=== PATIENT | male | born 1960 | race Asian ===

== ENCOUNTER 2019-09-05 11:54 | Inpatient (IN) | payer MEDICARE ==
[~2019-09-05] VITALS: Ht 157.5 cm; Wt 51.1 kg
[2019-09-05 12:07] VITALS: BP 154/83
[2019-09-05] MEDS ORDERED: ZOLPIDEM TARTRATE 10 MG TABLET PO PRN (12:15)
[2019-09-05] MEDS ORDERED: DIVA125T32 PO (12:15)
[2019-09-05] MEDS ORDERED: DiphenhydrAMINE HCL 50 MG/ML VIAL IM ONE (12:15)
[2019-09-05] MEDS ORDERED: LITH300C3 PO (12:15)
[2019-09-05] MEDS ORDERED: LORazepam 2 MG/ML VIAL IM ONE (12:15)
[2019-09-05] MEDS ORDERED: HALOPERIDOL LACTATE 5 MG/ML VIAL IM ONE (12:15)
[2019-09-05] MEDS ORDERED: HALOPERIDOL LACTATE 5 MG/ML VIAL ONE (12:38)
[2019-09-05] MEDS ORDERED: LORazepam 2 MG/ML VIAL ONE (12:38)
[2019-09-05] MEDS ORDERED: DiphenhydrAMINE HCL 50 MG/ML VIAL ONE (12:39)
[2019-09-05 12:45] VITALS: BP 163/92
[2019-09-05] MEDS ORDERED: PNEUMOCOCCAL VACCINE POLYVALENT 0.5 ML VIAL [PPSV23] IM ONE (13:15)
[2019-09-05] MEDS ORDERED: INFLUENZA VIRUS VACCINE QVS 2019-20 (3YR+)/PF 60 MCG/0.5 ML SYRINGE IM ONE (13:15)
[2019-09-05 14:26] LABS: GLUCOMETER DEV NAME(LOC) BV3N.; GLUCOSE,POINT OF CARE 106 MG/DL (70-110)
[2019-09-05] MEDS ORDERED: DOCUSATE SODIUM 100 MG CAPSULE PO PRN (15:00)
[2019-09-05] MEDS ORDERED: ALBUTEROL SULFATE HFA 90 MCG/PUFF 8 GM INHALER IH PRN (15:00)
[2019-09-05] MEDS ORDERED: CloNIDine HCL 0.1 MG TABLET PO PRN (15:00)
[2019-09-05] MEDS ORDERED: MAGNESIUM HYDROXIDE SUSPENSION 30 ML UDCUP PO PRN (15:00)
[2019-09-05] MEDS ORDERED: IBUPROFEN 400 MG TABLET PO PRN (15:00)
[2019-09-05] MEDS ORDERED: NICOTINE 14 MG/24 HOUR PATCH TD PRN (15:00)
[2019-09-05] MEDS ORDERED: ONDANSETRON HCL 4 MG TABLET PO PRN (15:00)
[2019-09-05] MEDS ORDERED: GuaiFENesin/D-METHORPHAN [SUGAR-FREE] 200-20MG/10 ML SYRUP UDCUP PO PRN (15:00)
[2019-09-05] MEDS ORDERED: LOPERAMIDE HCL 2 MG CAPSULE PO PRN (15:00)
[2019-09-05] MEDS ORDERED: MAG HYDROX/AL HYDROX/SIMETH ES 30 ML SUSPENSION UDCUP PO PRN (15:00)
[2019-09-05] MEDS ORDERED: ACETAMINOPHEN 325 MG TABLET PO PRN (15:00)
[2019-09-05] MEDS ORDERED: PETROLATUM,WHITE 28 GM JELLY TP PRN (15:00)
[2019-09-05 16:00] VITALS: BP 106/64
[2019-09-05] MEDS: AmLODIPine BESYLATE 5 MG TABLET PO SCH (16:52)
[2019-09-05] MEDS: HALOPERIDOL 5 MG TABLET PO PRN (16:52)
[2019-09-06 06:53] VITALS: BP 116/75
[2019-09-06 08:09] VITALS: BP 100/60
[2019-09-06] MEDS: AmLODIPine BESYLATE 5 MG TABLET PO SCH (09:00)
[2019-09-06 16:00] VITALS: BP 106/65
[2019-09-06] MEDS: HALOPERIDOL 5 MG TABLET PO PRN (16:55)
[2019-09-06] MEDS: LORazepam 2 MG TABLET PO PRN (16:55)
[2019-09-07 06:38] VITALS: BP 102/65
[2019-09-07 08:00] VITALS: BP 107/67
[2019-09-07] MEDS: AmLODIPine BESYLATE 5 MG TABLET PO SCH (08:16)
[2019-09-07 16:06] VITALS: BP 113/67
[2019-09-07] MEDS: LORazepam 2 MG TABLET PO PRN (16:54)
[2019-09-07] MEDS: HALOPERIDOL 5 MG TABLET PO PRN (16:54)
[2019-09-07] MEDS ORDERED: LORATADINE 10 MG TABLET PO PRN (17:45)
[2019-09-08 03:00] VITALS: BP 109/65
[2019-09-08 08:18] VITALS: BP 135/69
[2019-09-08] MEDS: AmLODIPine BESYLATE 5 MG TABLET PO SCH (08:32)
== END 2019-09-08 12:57 | disposition home or self-care (01) | DRG 885 ==
LOC: B3A 12:35
PROVIDERS: ADMIT Psychiatry & Neurology Psychiatry; ATTEND Psychiatry & Neurology Psychiatry
DX: F31.9 Bipolar disorder, unspecified (principal); E11.9 Type 2 diabetes mellitus without complications; I10 Essential (primary) hypertension; F16.90 Hallucinogen use, unspecified, uncomplicated; Z88.0 Allergy status to penicillin
CPT/HCPCS: J1200; J1630; J2060

== ENCOUNTER 2019-12-25 09:25 | Emergency (ER) | payer MEDICARE ==
[~2019-12-25] VITALS: Ht 160 cm; Wt 55.0 kg
[2019-12-25] MEDS ORDERED: NICO4GUM35 PO (09:30)
[2019-12-25] MEDS ORDERED: RISP1 PO (09:30)
[2019-12-25 12:00] LABS: BASOPHILS % (AUTO) 0.5 % (0.0-2.0); EOSINOPHILS % (AUTO) 6.9 % (1.0-6.0); HEMATOCRIT 43.7 % (41-53); HEMOGLOBIN 15.1 g/dL (13.5-17.5); LYMPHOCYTES # (AUTO) 1.3 K/uL (1.0-4.8); LYMPHOCYTES % (AUTO) 18.7 % (22.0-44.0); MEAN CORPUSCULAR HEMOGLOBIN 33.9 pg (26.0-34.0); MEAN CORPUSCULAR HGB CONC 34.6 G/dL (31.0-37.0); MEAN CORPUSCULAR VOLUME 98 fL (80-100); MONOCYTES # (AUTO) 0.5 K/uL (0.1-1.0); MONOCYTES % (AUTO) 7.3 % (2.0-9.0); NEUTROPHILS # (AUTO) 4.8 K/uL (1.8-7.7); NEUTROPHILS % (AUTO) 66.6 % (40.0-70.0); PLATELET COUNT (AUTO) 192 K/uL (150-450); RED BLOOD CELL COUNT(AUTO) 4.45 MIL/uL (4.50-5.90); RED CELL DISTRIBUTION WIDTH 13.4 % (11.5-14.5)
[2019-12-25 12:16] LABS: ANION GAP 11 mmol/L (8-16); CALCIUM, TOTAL 10.2 mg/dL (8.8-10.5); CARBON DIOXIDE 28 mmol/L (22-29); CHLORIDE 100 mmol/L (98-107); CREATININE 0.94 mg/dL (0.60-1.30); GLOMERULAR FILTR. RATE CALC > 60 mL/min (>60); GLUCOSE,RANDOM 120 mg/dL (70-110); POTASSIUM 4.2 mmol/L (3.5-5.1); SODIUM SERUM 139 mmol/L (136-145); UREA NITROGEN, BLOOD 13 mg/dL (7-18)
[2019-12-25 12:25] LABS: ALANINE AMINOTRANSFERASE 20 U/L (12-78); ALKALINE PHOSPHATASE 101 U/L (46-116); ASPARTATE AMINOTRANSFERASE 14 U/L (15-37); BILIRUBIN,TOTAL 0.4 mg/dL (0.1-1.0); TOTAL PROTEIN, SERUM 7.7 g/dL (6.4-8.2)
[2019-12-25 13:39] LABS: APPEARANCE,URINE CLEAR (CLEAR); BILIRUBIN,URINE NEGATIVE (NEGATIVE); GLUCOSE, URINE (UA) 500 mg/dL (NEGATIVE); KETONES,URINE NEGATIVE (NEGATIVE); LEUKOCYTE ESTERASE ,URINE NEGATIVE (NEGATIVE); NITRATE,URINE NEGATIVE (NEGATIVE); OCCULT BLOOD,URINE NEGATIVE (NEGATIVE); PH,URINE 5.5 (5.0-8.0); PROTEIN,URINE NEGATIVE (NEGATIVE); UROBILINOGEN,URINE 0.2 mg/dL (<=1.0)
[2019-12-25 13:45] LABS: AMPHET/METH SCREEN,URINE POSITIVE (NEGATIVE); BARBITURATE SCREEN, URINE NEGATIVE (NEGATIVE); BENZODIAZEPINES SCREEN,URINE NEGATIVE (NEGATIVE); CANNABINOID SCREEN,URINE POSITIVE (NEGATIVE); COCAINE SCREEN,URINE NEGATIVE (NEGATIVE); METHADONE SCREEN, URINE NEGATIVE (NEGATIVE); OPIATE SCREEN,URINE NEGATIVE (NEGATIVE)
[2019-12-25 13:47] LABS: PHENCYCLIDINE SCREEN,URINE NEGATIVE (NEGATIVE)
[2019-12-25 14:26] LABS: BACTERIA,URINE None Seen /HPF (None Seen); RBC,URINE 0-2 /HPF (0-2); WBC,URINE 0-2 /HPF (0-5)
[2019-12-25 16:30] VITALS: BP 115/69
== END 2019-12-25 16:32 | disposition home or self-care (01) ==
LOC: EMS 09:30
DX: F15.10 Other stimulant abuse, uncomplicated (principal); F31.9 Bipolar disorder, unspecified; Z88.0 Allergy status to penicillin
CPT/HCPCS: 36415; 80053; 80307; 81001; 85025; 99283; G0480